=== PATIENT | male | born 1955 | race Caucasian/White ===

== ENCOUNTER 2017-01-20 19:02 | Observation (INO) ==
--- NOTE | 2017-01-20 19:13 | Emergency Department Note ---
Disposition Clinical Impression: Chest pain Disposition: Admitted As Inpatient Condition: Good General Adult HPI - General Stated complaint: chest pains, has difibulator Time Seen by Provider: 01/20/17 19:05 - Related Data Allergies Allergy/AdvReac Type Severity Reaction Status Date / Time No Known Allergies Allergy Verified 01/20/17 19:27 Course Vital Signs Temperature 98.1 F 01/20/17 19:06 Pulse Rate 76 01/20/17 19:06 Respiratory Rate 16 01/20/17 19:06 Blood Pressure 141/87 01/20/17 19:06 O2 Sat by Pulse Oximetry 96 01/20/17 19:06 Temperature 98 F 01/20/17 21:31 Pulse Rate 71 01/20/17 20:31 Respiratory Rate 18 01/20/17 21:31 Blood Pressure 128/82 01/20/17 21:31 O2 Sat by Pulse Oximetry 94 01/20/17 20:31 Oxygen Delivery Oxygen Delivery Room Air Medical Decision Making - Lab Data Result diagrams: 01/20/17 19:12 01/20/17 19:12 Lab Results 01/20/17 01/20/17 01/20/17 Range/Units 19:12 19:12 19:12 WBC 13.6 H (4.3-11.1) K/mcL RBC 5.92 H (4.19-5.50) M/mcL Hgb 16.4 (12.9-16.9) g/dL Hct 51.8 H (37.5-50.1) % MCV 87.5 (83.0-100.0) fL MCH 27.7 L (28.0-33.3) pg MCHC 31.7 (31.6-35.5) g/dL RDW 13.0 (11.5-14.5) % Plt Count 297 (140-400) K/mcL MPV 9.9 (9.4-12.4) fL Immature Gran % 0.5 (0-4) % Seg Neutrophils % 76.6 % Lymphocytes % 10.7 % Monocytes % 9.3 % Eosinophils % 2.1 % Basophils % 0.8 % Neutrophils # 10.4 H (1.6-8.9) K/mcL Lymphocytes # 1.5 (0.6-4.6) K/mcL Monocytes # 1.3 (0.0-1.3) K/mcL Eosinophils # 0.3 (0.0-0.6) K/mcL Basophils # 0.1 (0.0-0.2) K/mcL Sodium 138 (136-145) mEq/L Potassium 4.1 (3.5-4.5) mEq/L Chloride 105 (98-109) mEq/L Carbon Dioxide 25 (19-29) mEq/L BUN 13 (8-26) mg/dL Creatinine 1.16 (0.72-1.25) mg/dL Est GFR ( Amer) > 60 (> 60) Est GFR (Non-Af Amer) > 60 (> 60) BUN/Creatinine Ratio 11 (6-26) Glucose 116 H (70-99) mg/dL Calculated Osmolality 287 (280-300) Calcium 9.4 (8.6-10.8) mg/dL Troponin I 0.02 (0-0.03) ng/mL Lipase 18 (8-78) Units/L Attestation Statement - Attestation Attestation: I examined this patient and my medical decision-making was reviewed with the Resident Physician. I agree with the documented findings, disposition and treatment plan as described except to the extent set forth below. Face to face time provided Patient c/o intermittent CP x 3 days. Pain non exertional. H/o AICD. No acute distress. EKG reviewed by me. Plan of care and management discussed by me with the resident physician Dr. Mccauley
[2017-01-20] MEDS ORDERED: Aspirin 325 MG TABLET PO ONE (19:19)
[2017-01-20 19:25] LABS: Basophils # 0.1 K/mcL (0.0-0.2); Basophils % 0.8 %; Eosinophils # 0.3 K/mcL (0.0-0.6); Eosinophils % 2.1 %; Hematocrit 51.8 % (37.5-50.1); Hemoglobin 16.4 g/dL (12.9-16.9); Immature Granulocytes % 0.5 % (0-4); Lymphocytes # 1.5 K/mcL (0.6-4.6); Lymphocytes % 10.7 %; Mean Corpuscular HGB Conc 31.7 g/dL (31.6-35.5); Mean Corpuscular Hemoglobin 27.7 pg (28.0-33.3); Mean Corpuscular Volume 87.5 fL (83.0-100.0); Mean Platelet Volume 9.9 fL (9.4-12.4); Monocytes # 1.3 K/mcL (0.0-1.3); Monocytes % 9.3 %; Neutrophils # 10.4 K/mcL (1.6-8.9); Platelet Count 297 K/mcL (140-400); Red Blood Count 5.92 M/mcL (4.19-5.50); Segmented Neutrophils % 76.6 %
--- NOTE | 2017-01-20 19:32 | Emergency Department Note ---
Disposition Clinical Impression: Chest pain Disposition: Admitted As Inpatient Condition: Good Referrals: Unassigned,Provider [Non-Partnered Physician] - Time of Disposition: 20:28 Chest Pain HPI - General Chief Complaint: ED Chest Pain Stated Complaint: chest pains, has difibulator Time Seen by Provider: 01/20/17 19:05 Source: patient, family Vital Signs Reviewed: Yes Nursing Notes Reviewed: Yes - History of Present Illness HPI Narrative: This is a 61-year-old male with a past medical history of defibrillator placement, HTN, smoking, possible old myocardial infarction. He was assisted emergency department with a three-day history of chest pain. He states that this is the first time this has happened. He states that he feels chest tightness, and pain radiating to the back of his shoulders. Severity scale (1-10): 3 - Related Data Allergies Allergy/AdvReac Type Severity Reaction Status Date / Time No Known Allergies Allergy Verified 01/20/17 19:27 All systems ED: reviewed and negative except as stated. Constitutional: Denies: fever, chills Cardiovascular: Reports: chest pain Respiratory: Reports: dyspnea. Denies: cough, wheezes Gastrointestinal: Denies: abdominal pain, nausea, vomiting Musculoskeletal: Reports: back pain Neurological: Denies: headache Psychiatric: Denies: anxiety, depression Endocrine: Denies: fatigue Chest Pain PMH - Past Medical History Medical history: Reports: arthritis, cardiomyopathy, DVT, GERD, hypertension, kidney stones, myocardial infarction Psychiatric history: Reports: no psych history - Social History Smoking Status: Never smoker Alcohol use: Reports: none Drug use: Reports: none Physical Exam - General General appearance: alert, in no apparent distress - Eye Eye exam: Absent: scleral icterus, conjunctival injection - ENT ENT exam: normal oropharynx, mucous membranes moist - Neck Neck exam: Present: trachea midline. Absent: tenderness, meningismus - Chest Chest inspection: Present: normal inspection, symmetric chest wall rise - Respiratory Respiratory exam: Present: normal lung sounds bilaterally. Absent: respiratory distress, wheezes - Cardiovascular Cardiovascular exam: Present: regular rate, normal rhythm, normal heart sounds - Abdominal Exam Abdominal exam: Present: soft, Non-Tender. Absent: distention, guarding, rebound - Expanded Lower Extremity Exam Neurovascular/Tendon exam: Present: normal capillary refill. Absent: pulse deficit, motor deficit, sensory deficit - Back Exam Back exam: Present: full ROM. Absent: tenderness - Neurological Exam Neurological exam: Present: alert, oriented X3 - Psychiatric Psychiatric exam: Present: normal affect, normal mood - Skin Skin exam: Present: warm, dry, intact Course Course Narrative: This is a 61-year-old male who presents to the emergency department with chest pressure and tightness. He reports some nausea with it as well as diaphoresis. This is initially most concerning for an acute ND. We are obtaining an EKG, troponin, CBC, BMP, chest x-ray. We are providing the patient with aspirin. - Reevaluation(s) Reevaluation #1: Patient is still having fatigue. He denies any new chest pain. His chest x- ray came back normal, his EKG did not show any new ischemic changes. His CBC and BMP were all within normal limits. At this time, the hospitalist Dr. Farrell was consulted to have this patient admitted. The family agrees with the plan. Vital Signs Temperature 98.1 F 01/20/17 19:06 Pulse Rate 76 01/20/17 19:06 Respiratory Rate 16 01/20/17 19:06 Blood Pressure 141/87 01/20/17 19:06 O2 Sat by Pulse Oximetry 96 01/20/17 19:06 Temperature 98.1 F 01/20/17 19:06 Pulse Rate 72 01/20/17 19:30 Respiratory Rate 18 01/20/17 19:30 Blood Pressure 127/77 01/20/17 19:30 O2 Sat by Pulse Oximetry 95 01/20/17 19:30 Oxygen Delivery Oxygen Delivery Room Air Time: 20:21 Vital Signs Temperature 98.1 F 01/20/17 19:06 Pulse Rate 76 01/20/17 19:06 Respiratory Rate 16 01/20/17 19:06 Blood Pressure 141/87 01/20/17 19:06 O2 Sat by Pulse Oximetry 96 01/20/17 19:06 Temperature 98.1 F 01/20/17 19:06 Pulse Rate 72 01/20/17 19:30 Respiratory Rate 18 01/20/17 19:30 Blood Pressure 127/77 01/20/17 19:30 O2 Sat by Pulse Oximetry 95 01/20/17 19:30 Oxygen Delivery Oxygen Delivery Room Air Chest Pain - Medical Records Medical records reviewed: Yes I reviewed the patient's medical records. - Lab Data Lab results reviewed: Yes I reviewed the patient's lab results. Result diagrams: 01/20/17 19:12 01/20/17 19:12 Lab Results 01/20/17 01/20/17 01/20/17 Range/Units 19:12 19:12 19:12 WBC 13.6 H (4.3-11.1) K/mcL RBC 5.92 H (4.19-5.50) M/mcL Hgb 16.4 (12.9-16.9) g/dL Hct 51.8 H (37.5-50.1) % MCV 87.5 (83.0-100.0) fL MCH 27.7 L (28.0-33.3) pg MCHC 31.7 (31.6-35.5) g/dL RDW 13.0 (11.5-14.5) % Plt Count 297 (140-400) K/mcL MPV 9.9 (9.4-12.4) fL Immature Gran % 0.5 (0-4) % Seg Neutrophils % 76.6 % Lymphocytes % 10.7 % Monocytes % 9.3 % Eosinophils % 2.1 % Basophils % 0.8 % Neutrophils # 10.4 H (1.6-8.9) K/mcL Lymphocytes # 1.5 (0.6-4.6) K/mcL Monocytes # 1.3 (0.0-1.3) K/mcL Eosinophils # 0.3 (0.0-0.6) K/mcL Basophils # 0.1 (0.0-0.2) K/mcL Sodium 138 (136-145) mEq/L Potassium 4.1 (3.5-4.5) mEq/L Chloride 105 (98-109) mEq/L Carbon Dioxide 25 (19-29) mEq/L BUN 13 (8-26) mg/dL Creatinine 1.16 (0.72-1.25) mg/dL Est GFR ( Amer) > 60 (> 60) Est GFR (Non-Af Amer) > 60 (> 60) BUN/Creatinine Ratio 11 (6-26) Glucose 116 H (70-99) mg/dL Calculated Osmolality 287 (280-300) Calcium 9.4 (8.6-10.8) mg/dL Troponin I 0.02 (0-0.03) ng/mL Lipase 18 (8-78) Units/L - EKG Data EKG attestation: Yes I reviewed and interpreted this EKG. EKG results narrative: 01/20/2017 Ventricular rate 80 bpm, MS interval 165 ms, QRS duration 112 ms, QT 379 ms, QTC 450 ms, normal axis. Sinus rhythm with a ventricular rate of 80 bpm. There are no new EKG changes from a previous EKG performed on 01/26/2014.
[2017-01-20 19:36] LABS: BUN/Creatinine Ratio 11 (6-26); Blood Urea Nitrogen 13 mg/dL (8-26); Calcium 9.4 mg/dL (8.6-10.8); Carbon Dioxide 25 mEq/L (19-29); Chloride 105 mEq/L (98-109); Glucose 116 mg/dL (70-99); Lipase 18 Units/L (8-78); Osmolality,Calculated 287 (280-300); Potassium 4.1 mEq/L (3.5-4.5); Sodium 138 mEq/L (136-145); eGFR For African Americans > 60 (> 60); eGFR For Non-African Americans > 60 (> 60)
--- NOTE | 2017-01-20 22:35 | Internal Med History&Physical ---
<Mateo Dolan - Last Filed: 01/21/17 00:44> Date of Encounter: 01/21/17 Time of Encounter: 22:00 Assessment and Plan (1) Chest pain Current visit: Yes Status: Acute Patient presents with chest pain that he states has been intermittent over the past three days and he describes as a pressure that radiates to his back between his shoulder blades. He also reports SOB and diaphoresis. Initial troponin was 0.02. He reports his last echo and stress test were > 2 years ago. Patient's current risk factors include cardiomyopathy, history of DVTs, previous myocardial infarction, and hypertension. Echocardiogram ordered. Patient to be NPO after midnight for ordered nuclear pharm stress test. Will trend troponins x2. Patient placed on continuous cardiac telemetry. Will consider cardiology consult based on echo and stress test results. Nitroglycerin PRN and 81 mg aspirin therapy ordered. Will continue patient's HTN medications. Lipid panel and Lipitor 20 mg daily ordered. Patient to be monitored closely. Qualifiers: Chest pain type: other chest pain Qualified Code(s): R07.89 - Other chest pain; R07.8 - Other chest pain (2) Leukocytosis Current visit: Yes Status: Acute Patient presents with acute leukocytosis on admission to the ED today with WBC of 13.6. Patient's CXR today upon close examination shows mild infiltrates in right lung which may be indicative of pneumonia. IV Rocephin 1000 mg daily ordered for infection coverage. Will monitor follow-up labs for WBC. Qualifiers: Leukocytosis type: unspecified Qualified Code(s): D72.829 - Elevated white blood cell count, unspecified (3) SOB (shortness of breath) Current visit: Yes Status: Acute Patient presents with shortness of breath that he describes as accompanying chest pain. Close examination of patient's CXR today may be indicative of pneumonia due to infiltrates in the right lung and WBC of 13.6. Patient placed on supplemental O2 with SPO2 monitoring, DuoNeb's ordered every 6 scheduled, and IV Rocephin 1000 mg daily ordered for infection coverage. Follow-up labs ordered. (4) GERD (gastroesophageal reflux disease) Current visit: Yes Status: Chronic Patient presents with history of chronic GERD. IVP Zofran every 6 when necessary ordered and IVP Protonix 40 mg twice a day ordered. Qualifiers: Esophagitis presence: esophagitis presence not specified Qualified Code(s) : K21.9 - Gastro-esophageal reflux disease without esophagitis (5) HTN (hypertension) Current visit: Yes Status: Chronic Patient presents with history of chronic hypertension. Will monitor patient's vital signs and continue patient's valsartan, Lopressor, and amlodipine. Qualifiers: Hypertension type: essential hypertension Qualified Code(s): I10 - Essential (primary) hypertension (6) DVT prophylaxis Current visit: Yes Status: Acute Patient placed on DVT prophylaxis due to current admission protocol and current symptoms. Patient also has hx of DVTs. Bilateral venous Dopplers of LEs ordered to R/O current DVTs. Heparin 5,000 units SQ Q8 ordered. Internal Medicine - H&P: HPI Chief complaint: Chest pain Admitted From: Emergency Dept Plans for Post Hospital Care: Home History of present illness: Mr. Griffiths is a 61 year old male with medical history of arthritis, cardiomyopathy, DVT, GERD, hypertension, kidney stones, and previous myocardial infarction who presents to the ED with chief complaint of chest pain and shortness of breath over the past 3 days. Patient states this is the first time this happened and he describes his chest discomfort as tightness and pain radiating to the back of his shoulders. Patient also reports nausea and diaphoresis. Patient denies cough, sputum production, recent illness, nausea, vomiting, fever, chills, abdominal pain, dizziness, lightheadedness, presyncope , or syncope. Patient's vital signs on admission to ED today were temperature 98.1 F, heart rate of 76, respiratory rate of 18, BP of 141/87 with secondary BP of 127/77 and SPO2 of 95% on room air. Patient's initial troponin 0.02. Glucose is mildly elevated at 116. WBCs on admission were 13.6. CXR today shows evidence of infiltrates in the right lung. Patient reports he is a never smoker. On examination, patient reports chest pain has resolved and comes and goes with and without exertion. Patient reports previous echo and stress test were more than 2 years ago. At the time of examination, patient's heart rate is regular rhythm and lungs are clear on auscultation. Patient is currently hemodynamically stable and in no acute distress. Information taken from patient , chart review, and previous medical records. Mr. Griffiths is at high risk for cardiac event and possible pneumonia based on current symptoms and test results and will be placed as observation status. Time spent with patient greater than 40 minutes. Past Med Surg Social Fam HX - Past Medical History Source: patient, old records reviewed Medical history: arthritis, cardiomyopathy, DVT, GERD, hypertension, kidney stones, myocardial infarction Psychiatric history: no psych history - Past Surgical History Surgical History: bariatric surgery, cholecystectomy, herniorrhaphy, orthopedic , other (Left knee, right shoulder, re-attachment of right index finger) - Social History Smoking Status: Never smoker Smokeless Tobacco Status: No Alcohol use: none Drug use: none Current living situation: Home Activity Level: Independent ambulation Recent Out of Country Travel Within the Last 8 Weeks: No Exposure or Possible Exposure to Illness During Travel: No - Family History Mother Race: Family Member Ethnicity: Non- Living Status: Age at : 70 Cause of : Ovarian cancer Hx Family Cancer: Yes (Ovarian) Father Race: Family Member Ethnicity: Non- Living Status: Age at : 72 Cause of : Angie Gehrig's disease Hx Family Neuromuscular Disorders: Yes (ALS) Brother Race: Family Member Ethnicity: Non- Living Status: Still Living Hx Family Medical Disorders: No Sister Race: Family Member Ethnicity: Non- Living Status: Still Living Hx Family Cardiac Disorders: Yes (HD) Internal Medicine - H&P: Meds Amlodipine Besylate 2.5 mg PO DAILY 01/20/17 [History] Bupropion HCl [Wellbutrin Xl] 300 mg PO DAILY 01/20/17 [History] Metoprolol Tartrate [Lopressor] 50 mg PO BID 01/20/17 [History] Pantoprazole Sodium 40 mg PO DAILY 01/20/17 [History] Valsartan [Diovan] 80 mg PO DAILY 01/20/17 [History] 3 Allergy/AdvReac Type Severity Reaction Status Date / Time No Known Allergies Allergy Verified 01/20/17 19:27 All Systems PM: A 10-system review of systems was performed and is negative for pertinent findings except as documented above in the HPI. - Constitutional Constitutional: no chills, no fever(s), no night sweats - EENT Eyes: no change in vision, no discharge, no pain, no photophobia Ears: no ear discharge, no ear pain, no tinnitus Nose, mouth and throat: no dysphagia, no nasal discharge, no neck pain, no sore throat - Breasts Breasts: as per HPI - Cardiovascular Cardiovascular ROS IM: as per HPI, chest pain, diaphoresis, dyspnea, dyspnea on exertion - Respiratory Respiratory: as per HPI, dyspnea, dyspnea on exertion - Gastrointestinal Gastrointestinal: no abdominal pain, no diarrhea, no hematemesis, no hematochezia, no melena, no nausea, no vomiting - Genitourinary Genitourinary ROS male: as per HPI - Musculoskeletal Musculoskeletal ROS IM: no numbness, no tingling - Integumentary Integumentary IM: no rash, no unusual bruising - Neurological Neurological ROS: no confusion, no convulsions, no focal weakness, no numbness, no tingling, no tremor(s) - Psychiatric Psychiatric: as per HPI - Endocrine Endocrine IM: as per HPI - Hematologic/Lymphatic Hematologic/Lymphatic: no easy bruising - Allergic/Immunologic Allergic/Immunologic: as per HPI - Constitutional Vitals: Temp Pulse Resp BP Pulse Ox 98.3 F 73 16 122/78 95 01/20/17 21:59 01/20/17 21:59 01/20/17 21:59 01/20/17 21:59 01/20/17 21:59 General appearance: Present: cooperative, A&O X 3, pleasant, no acute distress, obese, answers questions appropriately - Head Head exam: Present: atraumatic, normocephalic - Eye Eye exam: Present: PERRL, conjuntiva pink, sclera anicteric Pupils: Present: PERRL - ENT ENT exam: Present: normal exam, normal external ear exam - Neck Neck exam general surgery: Present: normal inspection, supple, trachea midline - Respiratory Respiratory exam: Present: CTAB. Absent: accessory muscle use, rales, rhonchi, wheezes - Cardiovascular Cardiovascular exam: Present: RRR, +S1, +S2. Absent: diastolic murmur, gallop, rubs, systolic murmur - GI/Abdominal GI/Abdominal exam: Present: normal bowel sounds, soft, no peritoneal signs. Absent: distended, tenderness - Rectal Rectal exam: Present: deferred - Additional comments: exam deferred. - Extremities Exam Extremities exam: Present: warm, radial pulses palpable and symmetrical. Absent : calf tenderness, cyanotic, pedal edema - Back Exam Back exam: Present: normal inspection - Neurological Exam Neurological exam: Present: CN II-XII intact, oriented X3, no focal deficits. Absent: pronater drift, facial droop, speech deficit - Psychiatric Psychiatric exam: Present: normal affect, normal mood - Skin Skin exam: Present: dry, intact Internal Med - H&P Results - Labs CBC & Chem 7: 01/20/17 19:12 01/20/17 19:12 - EKG Data EKG shows normal: sinus rhythm - EKG Data Prior EKG available for review: yes EKG comments: 01/21/17 00:22 EKG dated 01/26/14 shows sinus rhythm with inferior infarct, age undetermined and possible anterior infarct. EKG dated 01/20/17 shows sinus rhythm with moderate intraventricular conduction delay. - Diagnostic Studies Chest x-ray Additional comments: Impressions Chest X-Ray 01/20/17 19:19 IMPRESSION: 1. Stable cardiomegaly. 2. No acute cardiopulmonary process. D/ / Balaji Galvan MD / Balaji Galvan MD Interpreting Provider: Balaji Galvan MD <Elie Martell - Last Filed: 01/21/17 02:37> Date of Encounter: 01/21/17 Internal Medicine - H&P: HPI History of present illness: Mr. Griffiths is a 61 year old male All Systems PM: A 10-system review of systems was performed and is negative for pertinent findings except as documented above in the HPI. - Constitutional Vitals: Temp Pulse Resp BP Pulse Ox 98.3 F 73 16 122/78 95 01/20/17 21:59 01/20/17 21:59 01/20/17 21:59 01/20/17 21:59 01/20/17 21:59 Internal Med - H&P Results - Labs CBC & Chem 7: 01/20/17 19:12 01/20/17 19:12 Labs: Cardiac Enzymes 01/21/17 Range/Units 00:41 Troponin I 0.02 (0-0.03) ng/mL - Attending Attestation I have independently and personally seen the patient and examined him and discuss the care Plan with advancedpractitioner. Patient came in with atypical chest pain. He is planned to get a stress test due to multitude of his risk factors. Chest examination is unremarkable with clear chest heart S1 and S2 rate rhythm regular.
[2017-01-20] MEDS ORDERED: Naloxone 0.4 MG/ML INJ IVP PRN (23:09)
[2017-01-20] MEDS ORDERED: *HR* HYDROcodone/Acet 5/325 mg TABLET PO PRN (23:09)
[2017-01-20] MEDS ORDERED: *HR* Morphine 2 MG/ML SYRINGE IVP PRN (23:09)
[2017-01-20] MEDS ORDERED: Ondansetron 4 MG/2 ML VIAL IVP PRN (23:09)
[2017-01-20] MEDS ORDERED: Acetaminophen 325 MG TABLET PO PRN (23:09)
[2017-01-20] MEDS ORDERED: Nitroglycerin 0.4 MG TAB.SUBL SL PRN (23:19)
[2017-01-20] MEDS: Ipratropium/Albuterol Neb 3 ML IH SCH (23:53)
[2017-01-21] MEDS: Ipratropium/Albuterol Neb 3 ML IH SCH ×2 (04:28→10:42)
[2017-01-21] MEDS ORDERED: *HR* Heparin 5,000 UNIT/ML VIAL SQ SCH (06:00)
[2017-01-21] MEDS ORDERED: Regadenoson 0.4 MG/5 ML SYRINGE IVP ONE (06:17)
[2017-01-21 06:47] LABS: INR 1.1; Prothrombin Time 11.3 Seconds (9.4-12.1)
[2017-01-21 06:50] LABS: Activated Partial Thrombo Time 28.2 Seconds (26.0-36.0)
[2017-01-21 06:54] LABS: Hemoglobin A1C 5.5 %
[2017-01-21 06:58] LABS: Alanine Aminotransferase 17 Units/L (0-55); Albumin 3.4 g/dL (3.5-5.0); Albumin/Globulin Ratio 1.2 (1.1-2.2); Alkaline Phosphatase 129 Units/L (38-126); Aspartate Amino Transferase 14 Units/L (5-34); BUN/Creatinine Ratio 12 (6-26); Bilirubin,Total 0.9 mg/dL (0.2-1.2); Blood Urea Nitrogen 12 mg/dL (8-26); Calcium 9.1 mg/dL (8.6-10.8); Carbon Dioxide 27 mEq/L (19-29); Chloride 105 mEq/L (98-109); Chol/HDL Ratio 4.5 (0-4.9); Cholesterol 166 mg/dL (< 200); Globulin 2.9 g/dL (2.4-3.5); Glucose 103 mg/dL (70-99); HDL Cholesterol 37 mg/dL (40-59); LDL Cholesterol,Calculated 116 mg/dL (0-99); Magnesium 1.9 mg/dL (1.6-2.6); Osmolality,Calculated 286 (280-300); Potassium 3.7 mEq/L (3.5-4.5); Sodium 138 mEq/L (136-145); Total Protein 6.3 g/dL (6.0-8.3); Triglycerides 63 mg/dL (< 150); eGFR For African Americans > 60 (> 60); eGFR For Non-African Americans > 60 (> 60)
[2017-01-21 07:04] LABS: Basophils # 0.1 K/mcL (0.0-0.2); Basophils % 1.1 %; Eosinophils # 0.3 K/mcL (0.0-0.6); Eosinophils % 3.9 %; Hematocrit 46.9 % (37.5-50.1); Hemoglobin 15.2 g/dL (12.9-16.9); Immature Granulocytes % 0.4 % (0-4); Lymphocytes # 1.6 K/mcL (0.6-4.6); Lymphocytes % 20.1 %; Mean Corpuscular HGB Conc 32.4 g/dL (31.6-35.5); Mean Corpuscular Hemoglobin 28.6 pg (28.0-33.3); Mean Corpuscular Volume 88.2 fL (83.0-100.0); Mean Platelet Volume 10.1 fL (9.4-12.4); Monocytes # 0.9 K/mcL (0.0-1.3); Monocytes % 10.6 %; Neutrophils # 5.2 K/mcL (1.6-8.9); Platelet Count 242 K/mcL (140-400); Red Blood Count 5.32 M/mcL (4.19-5.50); Red Cell Distribution Width 13.2 % (11.5-14.5); Segmented Neutrophils % 63.9 %
[2017-01-21 07:11] LABS: Bilirubin,Urine Negative (Negative); Blood,Urine Negative (Negative); Clarity,Urine Clear (Clear); Color,Urine Yellow (Yellow); Glucose,Urine (UA) Normal (Normal); Ketones,Urine Negative (Negative); Leukocyte Esterase,Urine Negative (Negative); Nitrite,Urine Negative (Negative); Protein,Urine Negative (Neg-Trace); Specific Gravity,Urine 1.018 (1.010-1.025); Urobilinogen,Urine Normal (Normal)
[2017-01-21] MEDS ORDERED: BuPROPion XL (24 HR) 150 MG TABLET PO SCH (09:00)
[2017-01-21] MEDS ORDERED: amLODIPine 5 MG TABLET PO SCH (09:00)
[2017-01-21] MEDS ORDERED: Pantoprazole 40 MG VIAL IVP SCH (09:00)
[2017-01-21] MEDS ORDERED: Valsartan 80 MG TABLET PO SCH (09:00)
[2017-01-21] MEDS ORDERED: Aspirin Enteric Coated 81 MG Tablet PO SCH (09:00)
--- NOTE | 2017-01-21 10:03 | Nuclear Medicine Stress Report ---
Regadenoson Nuclear Stress Name: Rajat Griffiths Date of Study: 01/21/2017 Date: 1955 Ht: 74.0 in Medical Record#: [id number] Age: 61 Wt: 275.0 lb Gender: Male Order #: [id number] Location: [facility] Room: Supervising Provider: Dawna Portillo CNP Reading Physician: Reji Hughes DO, FAC, [facility] Ordering Physician: Vivi Pina CNP Primary Care Physician: Jax Smith MD Stress Technologist: Juanpablo Martin CRT Reinforcing Steel Placer: Noel Alexis Indications: Chest Pain Impression: Pharmacologic stress ECG is non-diagnostic for ischemia due to submaximal HR. Gated EF = 56%. Small sized, moderate intensity, fixed apex/apical lateral defect consistent with artifact. Perfusion imaging was negative for ischemia or infarct. History: Hypertension History of Smoking Stress Test Summary: Stress Test Type: Pharmacologic Regadenoson 0.4mg/5ml given IV Baseline Information: Initial Heart Rate: 67 Blood Pressure: 130/78 Stress Information: Test Terminated Due to (primary): As per protocol Maximum Blood Pressure: 134/72 Maximum Heart Rate: 91 Percent Maximum Heart Rate Achieved: 58 Double Product: [id number] METS Reached: 1 Symptoms: No chest symptoms Nuclear Summary: SPECT myocardial perfusion imaging using Tc99m Sestamibi given intravenously was performed at rest and following cardiac stress testing. The resting images were obtained following initial dose of 11.6 mCi. Following stress an additional dose of 35.6 mCi was given at peak exercise or 30 seconds post regadenoson infusion. Medication Given: Time Medication Dose Units Route Findings: Stress Note * Resting ECG demonstrated normal sinus rhythm. * No baseline arrhythmias were noted. * Pharmacologic stress ECG is non-diagnostic for ischemia due to submaximal HR. * Rare PVCs noted during stress. * Patient had no chest pain during stress. * Normal hemodynamic responses to pharmacologic stress. Study Quality * Study quality is average. Gated EF % * Gated EF = 56%. Left Ventricle * The left ventricle is dilated. LVEDV = 163 mL. Apical Perfusion Rest * The apical lateral/apex segment shows a moderate reduction in perfusion. Apical Perfusion Stress * The apical lateral/apex segment shows a moderate reduction in perfusion. TID * No evidence of transient ischemic dilatation. TID ratio = 0.73. Lung Uptake * There is no evidence of increase lung uptake. Updated by Reji Hughes DO, TAHIRA, NICK, NEREIDA on 01/21/2017 9:55:27 AM electronically signed on 01/21/2017 9:57:00 AM with status of Final
[2017-01-21 11:28] VITALS: BP 126/77
--- NOTE | 2017-01-21 13:21 | Discharge Summary ---
Date of Encounter: 01/21/17 Time of Encounter: 12:15 - Discharge Diagnosis (1) Chest pain Priority: Primary Status: Resolved Comments: Patient denied chest pain or shortness of breath on day of discharge. Echocardiogram unremarkable with ejection fraction of 50-55% and mild diastolic dysfunction. Patient euvolemic on examination-no signs of heart failure. Stress test negative. ACS ruled out. Early suspicion for possible early pneumonia given his leukocytosis and infiltrates noted on imaging- clinical picture not consistent with pneumonia. Qualifiers: Chest pain type: other chest pain Qualified Code(s): R07.89 - Other chest pain; R07.8 - Other chest pain (2) SOB (shortness of breath) Priority: Primary Status: Resolved (3) GERD (gastroesophageal reflux disease) Priority: Secondary Status: Chronic Comments: Denied current symptoms Qualifiers: Esophagitis presence: esophagitis presence not specified Qualified Code(s) : K21.9 - Gastro-esophageal reflux disease without esophagitis (4) HTN (hypertension) Priority: Secondary Status: Chronic Comments: Controlled, follow-up outpatient Qualifiers: Hypertension type: essential hypertension Qualified Code(s): I10 - Essential (primary) hypertension (5) Leukocytosis Priority: Primary Status: Resolved Qualifiers: Leukocytosis type: unspecified Qualified Code(s): D72.829 - Elevated white blood cell count, unspecified (6) DVT prophylaxis Priority: Primary Status: Acute Comments: Subcutaneous heparin while admitted - Discharge Medications Prescriptions: Simvastatin [Zocor] 40 mg PO HS #30 tab Home Medications: Amlodipine Besylate 2.5 mg PO DAILY 01/20/17 [History] Bupropion HCl [Wellbutrin Xl] 300 mg PO DAILY 01/20/17 [History] Metoprolol Tartrate [Lopressor] 50 mg PO BID 01/20/17 [History] Pantoprazole Sodium [Protonix] 40 mg PO DAILY 01/20/17 [History] Valsartan [Diovan] 80 mg PO DAILY 01/20/17 [History] Simvastatin [Zocor] 40 mg PO HS #30 tab 01/21/17 [Rx] Allergies/Adverse Reactions: 3 Allergy/AdvReac Type Severity Reaction Status Date / Time No Known Allergies Allergy Verified 01/20/17 19:27 Procedures/tests Complete & Pending: Procedures Performed prior 72 hours Category Date Time Status NM ruddy perf SPECT multi [NM] Routine Exams 01/20/17 23:18 Taken EV echocardiogram Routine Y 01/21/17 07:45 Completed SP pharm nuclear stress Routine Y 01/21/17 07:15 Completed Date of admission: 01/20/17 20:35 Primary care physician: Jax Smith MD Discharging clinician: Bhumi Beverly Anticipated date of discharge: 01/21/17 - Patient Status Disposition: Home, Self-Care Condition: Good Functional capacity at discharge: independent ambulation Overall status at discharge: patient is back to baseline - Discharge Instructions Follow Up With: Jax Smith MD [Primary Care Provider] - Forms: ED Satisfaction Letter Additional Instructions: Follow-up with primary care provider within 1-2 weeks - Diet and Activity Activity: increase activity as tolerated Diet: low fat, low cholesterol, low salt diet Hospital course: Mr. Griffiths is a 61 year old male with past medical history of cardiomyopathy , DVT, GERD, hypertension, kidney stones, prior GA, cholecystectomy. Patient presented to the emergency department chief complaint of chest pain and shortness of breath 3 days prior to presentation. Patient stating the first time this happened, he described it as chest discomfort and tightness with pain radiating to the back of his shoulders. Patient also endorses nausea and diaphoresis. He denied cough, sputum production, recent illness, nausea vomiting fever, abdominal pain, dizziness, lightheadedness, presyncope or syncope. Other than mild leukocytosis, workup in the emergency department unremarkable. Chest x-ray grossly normal with possible early infiltrates to the right lung so the patient was started on ceftriaxone and admitted to the hospitalist service for further evaluation and management. Troponins negative 3. Patient denied chest pain or shortness of breath while admitted. Echocardiogram unremarkable with ejection fraction of 50-55% with mild diastolic dysfunction. Patient euvolemic on examination during this admission- no indication of heart failure. Nuclear stress test negative for ischemia or infarct and revealed an ejection fraction of 56 percent. Acute coronary syndrome ruled out. Mild leukocytosis had resolved, suspect stress-related. Clinical picture not consistent with active/early pneumonia, no indication for antibiotics upon discharge. Patient was on room air during this admission in denied shortness of breath above his norm. Urinalysis negative. Urine also sent for strep and legionella-both negative. Regarding risk factor modification , he was started on a low-dose statin given that his LDL was 116. He was also educated on low cholesterol diet. He was discharged home in stable condition with close outpatient follow-up recommended. ITS Impressions Chest X-Ray 01/20/17 19:19 IMPRESSION: 1. Stable cardiomegaly. 2. No acute cardiopulmonary process. D/ / Balaji Galvan MD / Balaji Galvan MD Interpreting Provider: Balaji Galvan MD [facility] Nuclear Stress Date of Study: 01/21/2017 Impression: Pharmacologic stress ECG is non-diagnostic for ischemia due to submaximal HR. Gated EF = 56%. Small sized, moderate intensity, fixed apex/apical lateral defect consistent with artifact. Perfusion imaging was negative for ischemia or infarct. Echocardiogram Date of Study: 01/21/2017 Impressions: LVEF 50-55%. Borderline dilated left ventricle. Normal LV wall thickness and function. Mildly dilated right ventricle with normal appearing function. Mild left ventricular diastolic dysfunction. No evidence of pulmonary hypertension. No significant valvular dysfunction. - Time Spent with Patient Total time spent providing and/or coordinating discharge services: - Constitutional Vitals: Temp Pulse Resp BP Pulse Ox 98.4 F 71 18 126/77 96 01/21/17 11:28 01/21/17 11:28 01/21/17 11:28 01/21/17 11:28 01/21/17 11:28 General appearance: Present: cooperative, A&O X 3, pleasant, no acute distress, obese, answers questions appropriately - Head Head exam: Present: atraumatic, normocephalic - Eye Eye exam: Present: PERRL, conjuntiva pink, sclera anicteric Pupils: Present: PERRL - Neck Neck exam general surgery: Present: supple, trachea midline. Absent: lymphadenopathy - Respiratory Respiratory exam: Present: CTAB. Absent: accessory muscle use, rales, respiratory distress, rhonchi, wheezes - Cardiovascular Cardiovascular exam: Present: RRR, +S1, +S2. Absent: diastolic murmur, gallop, rubs, systolic murmur - GI/Abdominal GI/Abdominal exam: Present: normal bowel sounds, soft, no peritoneal signs. Absent: distended, tenderness - Extremities Exam Extremities exam: Present: warm, radial pulses palpable and symmetrical. Absent : calf tenderness, cyanotic, pedal edema - Neurological Exam Neurological exam: Present: alert, CN II-XII intact, normal gait, oriented X3, no focal deficits, strengths equal and symetr throughout. Absent: pronater drift, facial droop, speech deficit - Skin Skin exam: Present: dry, intact, normal color, warm
--- NOTE | 2017-01-22 14:35 | Electrocardiograph Report ---
[place] [id number] Test Date: 2017-01-20 Pat Name: Rajat Griffiths Department: 102 Room: 3B Gender: M Telemarketing Representative: Louise : 1955 Requested By: Rudolph Zavala Order Number: [id number] Reading MD: Chloé Dumont Measurements Intervals [place] Rate: 80 P: 11 ND: 165 QRS: -11 QRSD: 112 T: 12 QT: 379 QTc: 415 Interpretive Statements SINUS RHYTHM MODERATE INTRAVENTRICULAR CONDUCTION DELAY [110+ ms QRS DURATION] Electronically Signed On 01-22-2017 14:34:15 EDT by Chloé Dumont
== END 2017-01-21 14:30 | disposition home or self-care (01) ==
LOC: 3BNU 19:02 → EMEROO 19:02 → SUATTDRO 20:35 → 3BNU 21:32
PROVIDERS: ADMIT Internal Medicine; ATTEND Nurse Practitioner Family

== ENCOUNTER 2021-12-16 07:43 | Inpatient (IN) ==
[2021-12-16] MEDS ORDERED: Aspirin 81 MG TAB.CHEW PO ONE (07:46)
[2021-12-16] MEDS: Nitroglycerin 0.4 MG TAB.SUBL SL SCH ×3 (08:10→10:46)
[2021-12-16 08:17] LABS: Basophils # 0.1 K/mcL (0.0-0.2); Basophils % 0.7 %; Eosinophils # 0.3 K/mcL (0.0-0.6); Eosinophils % 3.4 %; Hematocrit 44.3 % (37.5-50.1); Hemoglobin 13.8 g/dL (12.9-16.9); Immature Granulocytes % 0.4 % (0-4); Lymphocytes # 0.4 K/mcL (0.6-4.6); Mean Corpuscular HGB Conc 31.2 g/dL (31.6-35.5); Mean Corpuscular Hemoglobin 26.3 pg (28.0-33.3); Mean Corpuscular Volume 84.4 fL (83.0-100.0); Mean Platelet Volume 10.2 fL (9.4-12.4); Monocytes # 1.1 K/mcL (0.0-1.3); Monocytes % 11.6 %; Neutrophils # 7.2 K/mcL (1.6-8.9); Platelet Count 230 K/mcL (140-400); Red Blood Count 5.25 M/mcL (4.19-5.50); Red Cell Distribution Width 14.6 % (11.5-14.5); Segmented Neutrophils % 79.9 %
[2021-12-16 08:32] LABS: BUN/Creatinine Ratio 11 (6-26); Blood Urea Nitrogen 13 mg/dL (8-23); Calcium 9.1 mg/dL (8.6-10.3); Carbon Dioxide 28 mEq/L (23-29); Chloride 102 mEq/L (98-107); Glucose 121 mg/dL (70-105); Osmolality,Calculated 285 (280-300); Potassium 3.9 mEq/L (3.5-5.1); Sodium 137 mEq/L (136-145); Troponin I < 0.03 ng/mL (< 0.04); eGFR For African Americans > 60 (> 60); eGFR For Non-African Americans > 60 (> 60)
[2021-12-16] MEDS ORDERED: *HR* Metoprolol 5 MG/5 ML VIAL IVP ONE (08:46)
[2021-12-16] MEDS ORDERED: Naloxone 0.4 MG/ML INJ IVP PRN (10:21)
[2021-12-16] MEDS ORDERED: Nitroglycerin 0.4 MG TAB.SUBL SL PRN (10:21)
[2021-12-16] MEDS ORDERED: Perflutren Lipid Microsphere 1.3 ML in 0.9 % Sodium Chloride 8.7 ML IVP PRN (10:21)
[2021-12-16] MEDS ORDERED: *HR* OxyCODONE Immed Rel 5 MG TABLET PO PRN (10:21)
[2021-12-16] MEDS ORDERED: Ondansetron ODT 4 MG TAB.RAPDIS SL PRN (10:21)
[2021-12-16 12:06] LABS: Magnesium 1.9 mg/dL (1.6-2.6)
[2021-12-16 12:20] LABS: Thyroid Stimulating Hormone 0.998 mcIU/mL (0.340-5.600)
[2021-12-16 16:20] LABS: Adenovirus Not Detected (Not Detect); Coronavirus 229E Not Detected (Not Detect); Coronavirus HKU1 Not Detected (Not Detect); Coronavirus NL63 Not Detected (Not Detect); Coronavirus OC43 Not Detected (Not Detect)
[2021-12-16 16:23] LABS: Bordetella Pertussis Not Detected (Not Detect); Chlamydophila pneumoniae Not Detected (Not Detect); Human Metapneumovirus Not Detected (Not Detect); Human Rhinovirus/Enterovirus Not Detected (Not Detect); Influenza A Subtype 2009 H1 Not Detected (Not Detect); Influenza B Not Detected (Not Detect); Mycoplasma pneumoniae Not Detected (Not Detect); Parainfluenza Virus 1 Not Detected (Not Detect); Parainfluenza Virus 2 Not Detected (Not Detect); Parainfluenza Virus 3 Not Detected (Not Detect); Parainfluenza Virus 4 Not Detected (Not Detect); Respiratory Syncytial Virus Not Detected (Not Detect); SARS-CoV-2 DETECTED (Not Detect)
[2021-12-16] MEDS: Acetaminophen 325 MG TABLET PO PRN ×2 (17:14→23:50)
[2021-12-16] MEDS: cefTRIAXone 1,000 MG in 0.9 % Sodium Chloride 10 ML IVP SCH (17:15)
[2021-12-16] MEDS: Azithromycin 500 MG in 0.9 % Sodium Chloride 250 ML IVPB SCH (17:17)
[2021-12-16 19:21] LABS: ABG Base Excess 1 mEq/L (-2 to 3); ABG HCO3 25 mEq/L (21-27); ABG Oxygen Saturation 97 % (95-98); ABG PCO2 37 mmHg (35-45); ABG PH 7.43 pH Units (7.32-7.45); ABG PO2 90 mmHg (85-104); ABG TCO2 26 mEq/L (20-26)
[2021-12-17] MEDS: Acetaminophen 325 MG TABLET PO PRN (06:21)
[2021-12-17] MEDS: *HR* Enoxaparin 40 MG/0.4 ML SYRINGE SQ SCH (06:22)
[2021-12-17 07:15] LABS: Basophils % 0.9 %; Eosinophils # 0.1 K/mcL (0.0-0.6); Eosinophils % 1.2 %; Immature Granulocytes % 0.5 % (0-4); Lymphocytes # 0.6 K/mcL (0.6-4.6); Lymphocytes % 13.5 %; Mean Corpuscular HGB Conc 30.3 g/dL (31.6-35.5); Mean Corpuscular Hemoglobin 25.7 pg (28.0-33.3); Mean Corpuscular Volume 84.9 fL (83.0-100.0); Mean Platelet Volume 10.7 fL (9.4-12.4); Monocytes # 1.2 K/mcL (0.0-1.3); Monocytes % 28.6 %; Neutrophils # 2.3 K/mcL (1.6-8.9); Platelet Count 200 K/mcL (140-400); Red Blood Count 4.71 M/mcL (4.19-5.50); Red Cell Distribution Width 14.6 % (11.5-14.5); Segmented Neutrophils % 55.3 %
[2021-12-17 07:20] LABS: Hemoglobin 12.1 g/dL (12.9-16.9); White Blood Count 4.2 K/mcL (4.3-11.1)
[2021-12-17] MEDS ORDERED: Furosemide 20 MG/2 ML VIAL IVP ONE (07:34)
[2021-12-17] MEDS ORDERED: Ipratropium 1 PUFF INHALER IH PRN (07:38)
[2021-12-17] MEDS: cefTRIAXone 1,000 MG in 0.9 % Sodium Chloride 10 ML IVP SCH (08:04)
[2021-12-17] MEDS: BuPROPion XL (24 HR) 150 MG TABLET PO SCH (08:05)
[2021-12-17] MEDS: Aspirin 81 MG TAB.CHEW PO SCH (08:05)
[2021-12-17 08:59] LABS: BUN/Creatinine Ratio 10 (6-26); Blood Urea Nitrogen 11 mg/dL (8-23); Calcium 8.7 mg/dL (8.6-10.3); Carbon Dioxide 31 mEq/L (23-29); Chloride 103 mEq/L (98-107); Chol/HDL Ratio 3.7 (0-4.9); Cholesterol 126 mg/dL (< 200); Glucose 97 mg/dL (70-105); HDL Cholesterol 34 mg/dL (40-59); LDL Cholesterol,Calculated 81 mg/dL (< 100); Osmolality,Calculated 285 (280-300); Potassium 3.9 mEq/L (3.5-5.1); Sodium 138 mEq/L (136-145); Triglycerides 53 mg/dL (< 150); eGFR For African Americans > 60 (> 60); eGFR For Non-African Americans > 60 (> 60)
[2021-12-17] MEDS ORDERED: amLODIPine 5 MG TABLET PO SCH (09:00)
[2021-12-17 11:11] LABS: Albumin 3.9 g/dL (3.5-5.7); Albumin/Globulin Ratio 1.4 (1.1-2.2); Bilirubin,Direct 0.1 mg/dL (0.0-0.2); Bilirubin,Indirect 0.3 mg/dL (0.0-1.0); Bilirubin,Total 0.4 mg/dL (0.3-1.0); Globulin 2.8 g/dL (2.4-3.5); Total Protein 6.7 g/dL (6.4-8.9)
[2021-12-17] MEDS ORDERED: SULFUR HEXAFLUORIDE MICROSPHR 25 MG VIAL IVP ONE (14:16)
[2021-12-17] MEDS: Azithromycin 500 MG in 0.9 % Sodium Chloride 250 ML IVPB SCH (16:46)
[2021-12-18 03:28] LABS: Basophils % 0.3 %; Hematocrit 41.8 % (37.5-50.1); Hemoglobin 12.8 g/dL (12.9-16.9); Immature Granulocytes % 0.3 % (0-4); Lymphocytes % 17.3 %; Mean Corpuscular HGB Conc 30.6 g/dL (31.6-35.5); Mean Corpuscular Hemoglobin 25.6 pg (28.0-33.3); Mean Corpuscular Volume 83.6 fL (83.0-100.0); Mean Platelet Volume 11.1 fL (9.4-12.4); Monocytes # 1.1 K/mcL (0.0-1.3); Monocytes % 18.5 %; Neutrophils # 3.8 K/mcL (1.6-8.9); Platelet Count 233 K/mcL (140-400); Red Cell Distribution Width 14.6 % (11.5-14.5); Segmented Neutrophils % 63.6 %
[2021-12-18 03:59] LABS: Alanine Aminotransferase 11 Units/L (7-52); Albumin 3.9 g/dL (3.5-5.7); Albumin/Globulin Ratio 1.6 (1.1-2.2); Alkaline Phosphatase 94 Units/L (34-104); Aspartate Amino Transferase 17 Units/L (13-39); BUN/Creatinine Ratio 16 (6-26); Bilirubin,Total 0.3 mg/dL (0.3-1.0); Blood Urea Nitrogen 17 mg/dL (8-23); Calcium 8.6 mg/dL (8.6-10.3); Carbon Dioxide 26 mEq/L (23-29); Chloride 105 mEq/L (98-107); Globulin 2.5 g/dL (2.4-3.5); Glucose 94 mg/dL (70-105); Osmolality,Calculated 285 (280-300); Potassium 3.8 mEq/L (3.5-5.1); Sodium 137 mEq/L (136-145); Total Protein 6.4 g/dL (6.4-8.9); eGFR For African Americans > 60 (> 60); eGFR For Non-African Americans > 60 (> 60)
[2021-12-18] MEDS: *HR* Enoxaparin 40 MG/0.4 ML SYRINGE SQ SCH (05:33)
[2021-12-18] MEDS: cefTRIAXone 1,000 MG in 0.9 % Sodium Chloride 10 ML IVP SCH (08:03)
[2021-12-18] MEDS: Aspirin 81 MG TAB.CHEW PO SCH (08:04)
[2021-12-18] MEDS: BuPROPion XL (24 HR) 150 MG TABLET PO SCH (08:04)
[2021-12-18] MEDS ORDERED: Furosemide 20 MG/2 ML VIAL IVP SCH (09:00)
[2021-12-18 14:44] VITALS: BP 123/78; PULSE 93; TEMP 98.4; O2SAT 94
[2021-12-18] MEDS: Azithromycin 500 MG in 0.9 % Sodium Chloride 250 ML IVPB SCH (17:25)
[2021-12-19] MEDS ORDERED: Furosemide 20 MG TABLET PO SCH (09:00)
[2021-12-19] MEDS ORDERED: Azithromycin 250 MG TABLET PO SCH (09:00)
[2021-12-19] MEDS ORDERED: dexAMETHasone 4 MG TABLET PO SCH (09:00)
== END 2021-12-18 19:24 | disposition home or self-care (01) | DRG 177 ==
LOC: EMEROOARM 07:43 → 3BNU 07:43
PROVIDERS: ADMIT Family Medicine; ATTEND Family Medicine